=== PATIENT | female | born 1965 | race African-American/Black ===

== ENCOUNTER 2019-07-02 12:49 | Outpatient (CLI) | payer OTHER, SELFPAY ==
--- NOTE | ~2019-07-02 | MMUS_ITS ---
EXAMINATION: MM diagnostic farideh RT w carmen, US breast RT limited HISTORY: Medial right breast lump TECHNIQUE: Full field and spot ML, MLO and cc 3-D tomosynthesis images of the right breast were perfo rmed and synthetic 2-D images were generated. CAD analysis was submitted and interpreted. High resolu tion targeted 3:00 right breast ultrasound was performed. COMPARISON: 10/24/2018, 09/06/2017, 09/04/2016 bilateral digital screening mammogram examinations 01/06/2019 limited 9:00 right breast ultrasound BREAST PARENCHYMAL COMPOSITION: There are scattered areas of fibroglandular density. FINDINGS: MAMMOGRAPHIC FINDINGS: No mammographic suspicious mass, architectural distortion, malignant calcification, skin thickening o r retraction is evident. ULTRASOUND: Real-time and color flow imaging targeted to the area of clinical complaint of breast lump at 3:00 9 cm from the nipple reveals an irregular anti-parallel hypoechoic mass with corkscrew configuration an d prominent vascularity, measuring up to almost 7 mm depth and approximately 3.7 mm width. This is ocampo spicious. Ultrasound-guided biopsy is recommended. IMPRESSION: 1. Suspicious irregular 3.7 x 7 mm anti-parallel vascular mass at 3:00 9 cm from nipple 2. Ultrasound-guided biopsy of right breast 3:00 lesion 9 cm from nipple is recommended BI-RADS category 4, suspicious findings. Funeral Planning Counselor Rossy took the report and ultrasound-guided biopsy recommendation for the right breast 3:[address] Garner by telephone on 07/02/2019 at 1410 hours Reviewed, dictated and finalized at location A. IMPRESSION: 1. Suspicious irregular 3.7 x 7 mm anti-parallel vascular mass at 3:00 9 cm fro m nipple 2. Ultrasound-guided biopsy of right breast 3:00 lesion 9 cm from nipple is rec ommended BI-RADS category 4, suspicious findings. Funeral Planning CounselorAssistant Blair took the report and ultrasound-guided biopsy recomm endation for the right breast 3:[address] Garner by telephone on 0 at 1410 hours IMPRESSION: 1. Suspicious irregular 3.7 x 7 mm anti-parallel vascular mass at 3:00 9 cm fro m nipple 2. Ultrasound-guided biopsy of right breast 3:00 lesion 9 cm from nipple is rec ommended BI-RADS category 4, suspicious findings. Funeral Planning Counselor Rossy took the report and ultrasound-guided biopsy recomm endation for the right breast 3:[address] Garner by telephone on 0 at 1410 hours
== END 2019-07-02 12:50 | disposition home or self-care (01) ==
LOC: ANHIMG 12:51
PROVIDERS: PCP Internal Medicine; Visit Provider Internal Medicine
DX: N63.0 Unspecified lump in unspecified breast (principal); R92.8 Other abnormal and inconclusive findings on diagnostic imaging of breast
CPT/HCPCS: 76642; 77061; 77065; G0279

== ENCOUNTER 2019-07-06 10:13 | Outpatient (CLI) | payer OTHER, SELFPAY ==
--- NOTE | ~2019-07-06 | US_ITS ---
US breast RT limited 07/06/2019 11:15 Indication: Hypoechoic abnormality seen on recent ultrasound. Biopsy requested. Procedure: High-resolution Limited ultrasound of the right breast Comparison: 07/02/2019 Findings: Study was performed under direct supervision from Dr. Mayer. The area of interest appears to represent a focally dilated serpiginous duct. There is adjacent but no internal vascularity. No marin d masses are identified. Impression: 1: No benign focally dilated serpiginous duct at 3:00, 9 cm from the nipple. Following discussion wit h the patient it was decided to do a short-term six-month follow-up ultrasound to assess stability ra ther than biopsy. BI-RADS CATEGORY 3-PROBABLY BENIGN FINDING RECOMMENDATION: Six-month follow-up targeted right breast ultrasound and diagnostic right mammogram r ecommended. Reviewed, dictated and finalized at location A. Impression: 1: No benign focally dilated serpiginous duct at 3:00, 9 cm from the nipple. Fo llowing discussion with the patient it was decided to do a short-term six-month follow-up ultrasound to assess stability rather than biopsy. BI-RADS CATEGORY 3-PROBABLY BENIGN FINDING RECOMMENDATION: Six-month follow-up targeted right breast ultrasound and diagno stic right mammogram recommended.
== END 2019-07-06 10:14 | disposition home or self-care (01) ==
PROVIDERS: PCP Internal Medicine; Visit Provider Internal Medicine
DX: N64.89 Other specified disorders of breast (principal)
CPT/HCPCS: 76642

== ENCOUNTER 2019-08-03 15:54 | Outpatient (CLI) | payer OTHER, SELFPAY ==
--- NOTE | ~2019-08-03 | XR_ITS ---
XR wrist RT min 3V DATE: 08/03/2019 16:18 INDICATION: Lateral wrist pain. No known injury. TECHNIQUE: 4 views COMPARISON: None FINDINGS: No fracture or dislocation, periosteal reaction or bone destruction, erosive change or griffin drocalcinosis. Joint spaces appear relatively preserved. IMPRESSION: No significant abnormality Reviewed, dictated and finalized at location A. IMPRESSION: No significant abnormality
== END 2019-08-03 15:55 | disposition home or self-care (01) ==
LOC: ANHIMG 15:57
PROVIDERS: PCP Internal Medicine; Visit Provider Internal Medicine
DX: M25.539 Pain in unspecified wrist (principal)
CPT/HCPCS: 73110

== ENCOUNTER 2019-08-25 06:35 | Outpatient (CLI) | payer OTHER, SELFPAY ==
--- NOTE | ~2019-08-25 | MR_ITS ---
EXAMINATION: MR wrist RT wo con DATE: 08/25/2019 07:50 INDICATION: Right wrist pain TECHNIQUE: Magnetic resonance imaging (MRI) of the right wrist was performed without intravenous cont rast. Sequences performed include axial PD-weighted FSE and PD-weighted FS FSE, coronal PD-weighted F S FSE and T1-weighted SE, and sagittal PD-weighted FS FSE and PD-weighted FSE. COMPARISON: None FINDINGS: Intrinsic ligaments: The scapholunate and lunotriquetral ligaments are normal. Triangular fibrocartilage complex (TFCC): The triangular fibrocartilage including its foveal and styloid attachments as well as the dorsal and volar radioulnar ligaments are normal. The ulnar collateral ligament, ulnotriquetral ligament and men iscal homologue are normal. The extensor carpi ulnaris tendon sheath is normal. Extensor wrist: Small amount of fluid in the tendon sheath of the first dorsal compartment with surrounding edema con sistent with moderate tenosynovitis. There is fusiform thickening of the extensor pollicis brevis and more prominently of the abductor pollicis longus tendons consistent with mild tendinopathy without d iscrete tear. Flexor wrist: The flexor tendons of the wrist are normal. No abnormality in the carpal tunnel with normal median n erve. Guyon's canal: Guyon's canal including the ulnar nerve and artery are normal. Bones/other: Bone alignment is normal. No fractures or pathologic marrow replacing process. Mild polyarticular ost eoarthritis in the carpus with mild nonuniform joint space narrowing and scattered mild subarticular edema and subtle articular cystic change at several of the carpal bones as well as at the base of the first, second and fourth metacarpals. IMPRESSION: 1. De Quervain's tenosynovitis the first dorsal compartment with mild tendinopathy without discrete t ear of the extensor pollicis brevis brevis and abductor pollicis longus tendons. 2. 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 Reviewed, dictated and finalized at location A. IMPRESSION: 1. De Quervain's tenosynovitis the first dorsal compartment with mild tendinopa thy without discrete tear of the extensor pollicis brevis brevis and abductor p ollicis longus tendons. 2. 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
== END 2019-08-25 06:36 | disposition home or self-care (01) ==
PROVIDERS: PCP Internal Medicine; Visit Provider Internal Medicine
DX: M25.531 Pain in right wrist (principal); M65.4 Radial styloid tenosynovitis [de Quervain]; M19.031 Primary osteoarthritis, right wrist
CPT/HCPCS: 73221

== ENCOUNTER 2020-05-06 09:40 | Outpatient (CLI) | payer OTHER, SELFPAY ==
[2020-05-06 10:45] LABS: Alanine Aminotransferase 15 U/L (4-35); Albumin Level 4.4 g/dL (3.5-5.1); Alkaline Phosphatase 78 U/L (38-126); Anion Gap 6 mmol/L (8-16); Aspartate Amino Transferase 25 U/L (14-36); Bilirubin,Total 0.3 mg/dL (0.2-1.3); Blood Urea Nitrogen 13 mg/dL (7-17); Carbon Dioxide 32 mmol/L (22-30); Chloride 102 mmol/L (98-107); Cholesterol 178 mg/dL (0-200); Estimated Glomerular Filt Rate > 60; Glucose 90 mg/dL (65-105); HDL Direct 58 mg/dL; Potassium 3.9 mmol/L (3.4-5.0); Sodium 140 mmol/L (137-145); Triglycerides 47 mg/dL (<150)
[2020-05-06 10:46] LABS: Hemoglobin A1C 5.8 % (<5.7)
[2020-05-06 10:57] LABS: LDL Cholesterol Direct 93 mg/dL
== END 2020-05-06 09:41 | disposition home or self-care (01) ==
PROVIDERS: PCP Internal Medicine; Visit Provider Internal Medicine
DX: R73.03 Prediabetes (principal); E78.5 Hyperlipidemia, unspecified; Z79.899 Other long term (current) drug therapy
CPT/HCPCS: 36415; 80053; 80061; 83036

== ENCOUNTER 2020-05-13 08:47 | Emergency (ER) | payer OTHER, SELFPAY ==
[2020-05-13 08:51] VITALS: BP 159/88; PULSE 91; RESP 16; TEMP 37.2; O2SAT 100
--- NOTE | 2020-05-13 08:55 | ED.HA ---
HPI - Headache General Chief Complaint: Headache Stated Complaint: L FACIAL PARALYSIS Source: patient Mode of arrival: ambulatory Limitations: no limitations History of Present Illness HPI Narrative: Patient is a 54-year-old female who presents complaining of left facial tingling and heaviness . She reports face feels the same as when she had TIA in 2015. Patient reports initially having headache on with facial tingling for the past 2 days. She reports history of TIA due to blood clot. She denies headache at this time. She denies chest pain or shortness of breath. 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 MD elicited complaint: other (Facial tingling) Related Data Home Medications Medication Instructions Recorded Confirmed multivitamin 1 tablet PO DAILY 07/07/19 05/13/20 aspirin [Adult Low Dose Aspirin] 81 mg PO DAILY 05/13/20 05/13/20 Allergies Allergy/AdvReac Type Severity Reaction Status Date / Time codeine Allergy Unknown lock jaw Verified 05/13/20 08:52 Review of Systems Review of Systems: Narrative: CONSTITUTIONAL: Denies fever, chills, or sweats. EYES: Denies visual changes, redness, or discharge. ENT: Denies rhinorrhea, congestion, sore throat, or otalgia. CARDIOVASCULAR: Denies chest pain, palpitations, or edema. RESPIRATORY: Denies cough or dyspnea. GASTROINTESTINAL: Denies abdominal pain, nausea, vomiting, or diarrhea. GENITOURINARY: Denies dysuria or hematuria. SKIN: Denies rash or itching. MUSCULOSKELETAL: Denies back pain, joint pain, or myalgia. NEUROLOGIC: Reports headache which has resolved, numbness and tingling to right face. Denies dizziness or weakness. PSYCHIATRIC: Denies anxiety or depression. 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 Please see nursing chart for further information. There is no relevant family history pertinent to the presenting complaint. Exam Narrative: Exam Narrative: GENERAL: Well-appearing, well-nourished, and in no acute distress. HEAD: Normocephalic, atraumatic. EYES: EOMI. No redness or drainage. Conjunctiva are normal. ENT: Mucous membranes pink and moist. Throat normal. Uvula midline. NECK: AROM. Supple. No lymphadenopathy. CHEST: No respiratory distress. HEART: Regular rate and rhythm. EXTREMITIES: Normal range of motion. No edema. SKIN: Warm, dry, no rash. 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 Alert and oriented x3. Gait steady. PSYCH: Normal affect. No signs of depression or anxiety. Course Vital Signs Vital signs: Vital Signs Temperature 37.2 C 05/13/20 08:51 Pulse Rate 91 05/13/20 08:51 Respiratory Rate 16 05/13/20 08:51 Blood Pressure 159/88 H 05/13/20 08:51 Pulse Oximetry 100 05/13/20 08:51 Temperature 37.2 C 05/13/20 08:51 Pulse Rate 91 05/13/20 08:51 Respiratory Rate 16 05/13/20 08:51 Blood Pressure 159/88 H 05/13/20 08:51 Pulse Oximetry 100 05/13/20 08:51 Reviewed-patient is informed that they may have pre-hypertension or hypertension based
== END 2020-05-13 09:08 | disposition short-term general hospital (02) ==
PROVIDERS: Emergency Provider Nurse Practitioner; PCP Internal Medicine
DX: R20.0 Anesthesia of skin (principal); J45.909 Unspecified asthma, uncomplicated; Z86.73 Personal history of transient ischemic attack (TIA), and cerebral infarction without residual deficits; Z86.718 Personal history of other venous thrombosis and embolism
CPT/HCPCS: 99213; G0463

== ENCOUNTER 2020-05-13 09:20 | Emergency (ER) | payer OTHER, SELFPAY ==
--- NOTE | ~2020-05-13 | CT_ITS ---
EXAMINATION: CT brain wo con DATE: 05/13/2020 10:10 INDICATION: Facial numbness. TECHNIQUE: Computed tomography (CT) of the head was performed without intravenous contrast. The mA wa s adjusted according to patient size. Iterative reconstruction technique was employed. The dose-lengt h product was 605.33 mGy-cm. COMPARISON: Head CT 03/23/2016 FINDINGS: There is no intracranial hemorrhage, acute infarction, or abnormal intracranial mass lesion . There are scattered areas of low attenuation in the cerebral white matter. The ventricles are selin l in size. The paranasal sinuses are clear. The mastoid air cells are normal. IMPRESSION: 1. Mild nonspecific cerebral white matter disease, which likely represents chronic small vessel ische abhijeet disease. Reviewed, dictated and finalized at location A. ESS ASSOCIATE IMPRESSION: 1. 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
[2020-05-13 09:28] VITALS: BP 140/75; PULSE 89; RESP 13; TEMP 36.7; O2SAT 100
[2020-05-13 10:26] LABS: Basophils Percent Auto 0.5 % (0.2-1.2); Eosinophils Absolute Auto 0.1 K/mm3 (0-0.3); Hematocrit 39.7 % (37.0-47.0); Hemoglobin 12.9 g/dL (12.0-15.0); Immature Granulocyte Absolute 0.02 K/mm3 (0.00-0.031); Immature Granulocyte Percent A 0.3 % (0-0.5); Lymphocytes Absolute Auto 1.21 K/mm3 (0.9-3.2); Lymphocytes Percent Auto 20.6 % (18.3-44.2); Mean Corpuscular HGB Conc 32.5 g/dl (32-36); Mean Corpuscular Hemoglobin 28.4 pg (26-34); Mean Corpuscular Volume 87.3 fl (80-100); Mean Platelet Volume 9.5 fl (7.4-10.4); Monocytes Absolute Auto 0.3 K/mm3 (0.1-0.6); Monocytes Percent Auto 5.6 % (2.6-8.5); Neutrophils Absolute Auto 4.2 K/mm3 (1.3-6.7); Platelet Count Result 289 k/mm3 (150-375); Red Blood Count 4.55 M/mm3 (4.2-5.4); Red Cell Distribution Width 14.6 % (11.5-14.5); White Blood Count 5.9 K/mm3 (4.5-10.0)
[2020-05-13 10:36] LABS: INR 0.9; Prothrombin Time 13.1 Seconds (11.1-14.7)
[2020-05-13 10:37] LABS: Anion Gap 4 mmol/L (8-16); Blood Urea Nitrogen 10 mg/dL (7-17); Calcium 9.1 mg/dL (8.4-10.2); Carbon Dioxide 32 mmol/L (22-30); Chloride 102 mmol/L (98-107); Estimated CRCL calculation 72 ml/min; Estimated Glomerular Filt Rate > 60; Glucose 101 mg/dL (65-105); Potassium 3.6 mmol/L (3.4-5.0); Sodium 138 mmol/L (137-145)
--- NOTE | 2020-05-13 10:47 | ED.GENADULT ---
HPI - General Adult General Chief complaint: Unspecified Stated complaint: Request [facility] from [facility] Time Seen by Provider: 05/13/20 09:42 Source: patient Mode of arrival: ambulatory Limitations: no limitations History of Present Illness HPI narrative: 54-year-old with a history of dyslipidemia, blood clot in the brain several years ago here with complaints of facial tightness on and off since her past 2 days she also states that the left side of her face is numb occasionally she denies any headache or weakness on any particular side of her body. Patient states that she is anxious about her uncle's health. She presently has no headache or numbness or weakness. Patient initially went to urgent care and was later referred here to the ER. Patient states that she was supposed to take aspirin but she has not taken for the last several weeks Onset (ago): day(s) (2) Location: face Radiation: non-radiation Quality: other (numbness) Exacerbating factors: none Associated symptoms: denies other symptoms Related Data Home Medications Medication Instructions Recorded Confirmed multivitamin 1 tablet PO DAILY 07/07/19 05/13/20 aspirin [Adult Low Dose Aspirin] 81 mg PO DAILY 05/13/20 05/13/20 Allergies Allergy/AdvReac Type Severity Reaction Status Date / Time codeine Allergy Unknown lock jaw Verified 05/13/20 08:52 Review of Systems Review of Systems: All systems reviewed & are unremarkable except as noted in HPI and below Constitutional: Constitutional: Reports no additional constitutional complaints Eyes: Eyes: Reports no additional eye complaints ENT: Reports system reviewed and no additional complaints, except as documented Cardiovascular: Cardiovascular: Reports no additional cardiovascular complaints Respiratory: Respiratory: Reports no additional respiratory complaints Gastrointestinal: Gastrointestinal: Reports no additional gastrointestinal complaints Musculoskeletal: Musculoskeletal: Reports no additional musculoskeletal complaints Neurologic: Reports system reviewed and no additional complaints, except as documented Psychiatric: Psychiatric: Reports no additional psychiatric complaints [facility] Past Medical History Medical History Back pain Bursitis of right hip History of asthma TIA due to embolism Surgical History Surgical History H/O: hysterectomy 1995 Family History Family History Mother Family history of multiple sclerosis Hypertension Father Carcinoma of colon, Onset Age: 54 Grandparent Stomach cancer Grandparent Carcinoma of colon Social History Social History Smoking status: Never smoker Alcohol intake: never Substance use: never 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 HEAD: Normocephalic, atraumatic. EYES: PERRLA and EOMI. ENT: Nares clear, no rhinorrhea or epistaxis. Mucous membranes moist. NECK: Supple. CHEST: Clear to auscultation. No respiratory distress. HEART: Regular rate and rhythm. No murmur heard. Normal peripheral pulses. ABDOMEN: Soft, nontender, nondistended, normal active bowel sounds. EXTREMITIES: Normal range of motion. No edema. SKIN: Warm, dry, no rash. NEURO: No focal deficits. Alert and oriented x3. PSYCH: Normal mood and affect. Course Course Emergency Course: Inform patient about her lab work and CT findings. I advised her to continue to take her home medication including aspirin. At this time there is no evidence of stroke. Advised her to follow-up with her primary doctor. Vital Signs Vital signs: Vital Signs Temperature 36.7 C 05/13/20 09:28 Pulse
== END 2020-05-13 11:09 | disposition home or self-care (01) ==
PROVIDERS: Emergency Provider Family Medicine; PCP Internal Medicine
DX: R20.0 Anesthesia of skin (principal); E78.5 Hyperlipidemia, unspecified; J45.909 Unspecified asthma, uncomplicated; Z86.73 Personal history of transient ischemic attack (TIA), and cerebral infarction without residual deficits; Z79.82 Long term (current) use of aspirin; R90.82 White matter disease, unspecified
CPT/HCPCS: 36415; 70450; 80048; 85025; 85610; 99284

== ENCOUNTER 2020-05-19 17:15 | Outpatient (CLI) | payer OTHER, SELFPAY | END 2020-05-19 17:16 | disposition home or self-care (01) | LOC: ANHCOVIDVC 17:15 | PROVIDERS: PCP Internal Medicine | DX: Z23 Encounter for immunization (principal) | CPT/HCPCS: 0001A; 91300 ==

== ENCOUNTER 2020-05-22 16:54 | Outpatient (CLI) | payer OTHER, SELFPAY ==
--- NOTE | ~2020-05-22 | XR_ITS ---
XR hand LT min 3V 05/22/2020 17:12 Indication: Left hand pain Procedure: 3 views left hand Comparison: No prior studies for comparison. Findings: No fracture, subluxation or dislocation. There is mild osteoarthritis of the first CMC and MCP joints. Mild degenerative changes of the second and third MCP joints. Benign cystic change proxim al pole of the scaphoid. No focal soft tissue abnormality. No foreign bodies. Impression: 1: Mild polyarticular osteoarthritis. Reviewed, dictated and finalized at location A. Impression: 1: Mild polyarticular osteoarthritis.
== END 2020-05-22 16:55 | disposition home or self-care (01) ==
LOC: ANHIMG 16:56
PROVIDERS: PCP Internal Medicine; Visit Provider Internal Medicine
DX: M79.642 Pain in left hand (principal); M19.042 Primary osteoarthritis, left hand
CPT/HCPCS: 73130

== ENCOUNTER 2020-06-16 17:06 | Outpatient (CLI) | payer OTHER, SELFPAY | END 2020-06-16 17:07 | disposition home or self-care (01) | LOC: ANHCOVIDVC 17:06 | PROVIDERS: PCP Internal Medicine | DX: Z23 Encounter for immunization (principal); Z20.822 Contact with and (suspected) exposure to COVID-19 | CPT/HCPCS: 0002A; 91300; C9803; U0003; U0005 ==

== ENCOUNTER 2020-07-01 08:45 | Outpatient (CLI) | payer OTHER, SELFPAY ==
--- NOTE | ~2020-07-01 | XR_ITS ---
XR hip RT min 2V DATE: 07/01/2020 09:15 INDICATION: Right hip and groin pain. No known injury. TECHNIQUE: AP, lateral, crosstable lateral views of right hip COMPARISON: 09/08/2013 right hip FINDINGS: No fracture, dislocation, avascular necrosis or bone destruction. IMPRESSION: No significant abnormality Reviewed, dictated and finalized at location A. IMPRESSION: No significant abnormality
== END 2020-07-01 08:46 | disposition home or self-care (01) ==
PROVIDERS: PCP Internal Medicine; Visit Provider Internal Medicine
DX: M25.551 Pain in right hip (principal)
CPT/HCPCS: 73502

== ENCOUNTER 2020-07-19 15:30 | Outpatient (CLI) | payer OTHER, SELFPAY ==
--- NOTE | ~2020-07-19 | US_ITS ---
EXAMINATION: US pelvic complete w TV DATE: 07/19/2020 15:56 INDICATION: Pelvic and perineal pain, hysterectomy TECHNIQUE: Multiple transabdominal and endovaginal sonographic images of the pelvis were obtained. COMPARISON: None. FINDINGS: The uterus is surgically absent. The right ovary measures 1.2 x 2.7 x 1.2 cm. The left ovar y measures 0.9 x 1.6 x 1.0 cm. There is normal vascular flow in the ovaries. There is no free fluid i n the pelvis. IMPRESSION: 1. No sonographic correlate for the patient's symptoms. Reviewed, dictated and finalized at location A.
== END 2020-07-19 15:31 | disposition home or self-care (01) ==
PROVIDERS: PCP Internal Medicine; Visit Provider Internal Medicine
DX: R10.2 Pelvic and perineal pain (principal)
CPT/HCPCS: 76830; 76856

== ENCOUNTER 2020-07-26 11:48 | Outpatient (CLI) | payer OTHER, SELFPAY ==
--- NOTE | ~2020-07-26 | US_ITS ---
EXAMINATION: US venous doppler LE RT DATE: 07/26/2020 12:11 INDICATION: Right lower limb pain. TECHNIQUE: Grayscale ultrasound images without and with compression and Doppler ultrasound images of the right lower extremity veins were obtained. COMPARISON: Ultrasound 09/08/2013 FINDINGS: The visualized portions of right common femoral vein, profunda (deep) femoral vein, femoral vein, pop liteal vein, peroneal veins, posterior tibial veins, and greater saphenous vein outflow are patent. IMPRESSION: 1. No deep venous thrombosis. Reviewed, dictated and finalized at location B.
== END 2020-07-26 11:49 | disposition home or self-care (01) ==
LOC: ANHIMG 11:49
PROVIDERS: PCP Internal Medicine; Visit Provider Internal Medicine
DX: M79.604 Pain in right leg (principal)
CPT/HCPCS: 93971

== ENCOUNTER 2020-12-08 15:58 | Outpatient (CLI) | payer OTHER, SELFPAY ==
--- NOTE | ~2020-12-08 | XR_ITS ---
XR knee RT 3V DATE: 12/08/2020 16:21 INDICATION: Anterior knee pain for one month TECHNIQUE: [place], AP and lateral views COMPARISON: None FINDINGS: There is mild superior pole patellar enthesopathy at quadriceps tendon insertion. No fracture, dislocation, joint effusion, periosteal reaction or bone destruction, radiopaque intra-a rticular loose body or chondrocalcinosis. IMPRESSION: Mild superior pole patellar enthesopathy Reviewed, dictated and finalized at location A.
== END 2020-12-08 15:59 | disposition home or self-care (01) ==
LOC: ANHIMG 15:59
PROVIDERS: PCP Internal Medicine; Visit Provider Internal Medicine
DX: M25.561 Pain in right knee (principal); M76.51 Patellar tendinitis, right knee
CPT/HCPCS: 73562

== ENCOUNTER 2021-03-09 14:51 | Outpatient (CLI) | payer OTHER, SELFPAY ==
--- NOTE | ~2021-03-09 | MR_ITS ---
EXAMINATION: MR brain/brain stem wo/w con DATE: 03/09/2021 15:54 INDICATION: Headache, unspecified. TECHNIQUE: Magnetic resonance imaging (MRI) of the brain and brainstem was performed without and with 15 mL MultiHance intravenous contrast. Sequences included sagittal and axial T1-weighted FSE, axial diffusion-weighted FS EPI, axial T2*-weighted GRE, axial T2-weighted FLAIR Propeller, and axial T2-we ighted Propeller. Postcontrast sequences included axial, sagittal, and coronal T1-weighted FSE. Appar ent diffusion coefficient (ADC) maps were created. COMPARISON: Brain MRI 01/10/2015 FINDINGS: There are scattered areas of nonspecific increased T2-weighted signal intensity in the cere bral white matter and mikel. There is no intracranial hemorrhage, acute infarction, or abnormal intrac ranial mass lesion. The ventricles are normal in size. There is mild mucosal thickening in the parana jarad sinuses. The orbits are normal. The mastoid air cells are normal. IMPRESSION: 1. Stable mild nonspecific cerebral white matter disease and pontine disease, which likely represents chronic small vessel ischemic disease. Reviewed, dictated and finalized at location A. RTISING COPYWRITER IMPRESSION: 1. Stable mild nonspecific cerebral white matter disease and pontine disease, w hich likely represents chronic small vessel ischemic disease.
[2021-03-09 15:24] LABS: Estimated Glomerular Filt Rate > 60
== END 2021-03-09 14:52 | disposition home or self-care (01) ==
PROVIDERS: PCP Internal Medicine; Visit Provider Internal Medicine
DX: R51.9 Headache, unspecified (principal); Z86.73 Personal history of transient ischemic attack (TIA), and cerebral infarction without residual deficits; R90.82 White matter disease, unspecified
CPT/HCPCS: 70553; A9577

== ENCOUNTER 2021-05-30 14:36 | Outpatient (CLI) | payer OTHER, SELFPAY ==
[2021-05-30 16:29] LABS: CRP 0.5 mg/dL (<1.0)
[2021-05-30 16:46] LABS: Erythrocyte Sedimentation Rate 18 mm/hr (0-20)
== END 2021-05-30 14:37 | disposition home or self-care (01) ==
LOC: ANHWCLAB 14:38
PROVIDERS: PCP Internal Medicine; Visit Provider Internal Medicine
DX: M79.643 Pain in unspecified hand (principal)
CPT/HCPCS: 36415; 85652; 86140

== ENCOUNTER 2021-09-06 09:34 | Emergency (ER) | payer OTHER, SELFPAY ==
--- NOTE | ~2021-09-06 | CT_ITS ---
EXAMINATION: CT brain wo con INDICATION: Headache COMPARISON: 05/13/2020 TECHNIQUE: Standard unenhanced head CT. The dose-length product (DLP) was 529.67 mGy-cm. The mA was a djusted according to patient size. Iterative reconstruction technique was employed. FINDINGS: There is no intracranial hemorrhage, acute infarction, or abnormal mass lesion. The ventric les are normal. There is no abnormal mass effect or midline shift. The diaz-white matter differentiat ion is normal. There is mild periventricular and subcortical hypodensity probably related to small ve ssel ischemic disease. The globes and orbits are normal. The paranasal sinuses are clear. IMPRESSION: 1. No acute intracranial abnormality. 2. Nonspecific cerebral white matter disease. Reviewed, dictated and finalized at location B.
[2021-09-06 09:39] VITALS: BP 158/91; PULSE 109; RESP 18; TEMP 36.4; O2SAT 100
--- NOTE | 2021-09-06 10:04 | ED.HEATRA ---
HPI - Head Injury General Chief complaint: Head Injury Stated complaint: HI Time Seen by Provider: 09/06/21 09:40 History of Present Illness HPI Narrative: 55-year-old female presents emergency room secondary hand injury. 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 She states she was dazed but had no loss of consciousness. This morning she felt like she was even more dizzy and having just a mild headache and subsequently came to emergency room. She took aspirin for this discomfort she had. She has no visual problems. No numbness or tingling arms or legs. She states several years ago she was diagnosed with TIA. Related Data Home Medications Medication Instructions Recorded Confirmed multivitamin (One-A-Day Essential 1 tablet PO DAILY 07/07/19 12/18/20 tablet) aspirin 81 mg tablet 81 mg PO DAILY PRN Pain 05/13/20 12/18/20 topiramate 25 mg tablet (Topamax) 25 mg PO PRN PRN Migraine Headache 11/10/20 12/18/20 Allergies Allergy/AdvReac Type Severity Reaction Status Date / Time codeine Allergy Severe lock jaw Verified 09/06/21 09:55 Review of Systems Review of Systems: CONSTITUTIONAL: Denies fever, chills, or sweats. EYES: Denies visual changes, redness, or discharge. ENT: Denies rhinorrhea, congestion, sore throat, or otalgia. CARDIOVASCULAR: Denies chest pain, palpitations, or edema. RESPIRATORY: Denies cough or dyspnea. GASTROINTESTINAL: Denies abdominal pain, nausea, vomiting, or diarrhea. GENITOURINARY: Denies dysuria or hematuria. SKIN: Denies rash or itching. MUSCULOSKELETAL: Denies back pain, joint pain, or myalgia. NEUROLOGIC: Has a mild headache specifically to the top of her head where she hit it yesterday. Denies any visual disturbance. Denies any numbness weakness arms or legs. PSYCHIATRIC: Denies anxiety or depression. 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 Head normocephalic with mild amount of swelling to the top of the head with some mild tenderness to palpation. No bony abnormalities. No ecchymosis. EYES: PERRLA/EOMI, conjunctivae very clear. NOSE: Normal with no drainage EARS:TMS clear Sarthak Garza, with good light reflex. THROAT: Pharynx clear, no exudate. NECK: Supple. No adenopathy, no masses. RESPIRATORY: Airway patent, respirations nonlabored. Clear to auscultation bilaterally, no rales, rhonchi, wheezing. CARDIOVASCULAR: Regular rate and rhythm without murmurs, rubs, or gallops. ABDOMINAL: Soft, nontender, nondistended, no hepatosplenomegaly Musculoskeletal: Moves all extremities. Strength/ROM intact, No edema, No calf tenderness. NEURO: Alert. Cranial nerves II through XII intact. Normal gait. Good coordination. Nonfocal examination. SKIN:: Warm, dry. Normal Color PSYCHIATRIC: Normal affect/mood, normal interaction Course Vital Signs Vital signs: Vital Signs Temperature 97.6 F 09/06/21 09:39 Pulse Rate 109 H 09/06/21 09:39 Respiratory Rate 18 09/06/21 09:39 Blood Pressure 158/91 H 09/06/21 09:39 Pulse Oximetry 100 07
== END 2021-09-06 10:54 | disposition home or self-care (01) ==
PROVIDERS: Emergency Provider Emergency Medicine; PCP Internal Medicine
DX: S06.0X0A Concussion without loss of consciousness, initial encounter (principal); W22.8XXA Striking against or struck by other objects, initial encounter; Y92.59 Other trade areas as the place of occurrence of the external cause; Y99.0 Civilian activity done for income or pay
CPT/HCPCS: 70450; 99284

== ENCOUNTER 2022-12-21 11:44 | Outpatient (CLI) | payer OTHER, SELFPAY ==
--- NOTE | ~2022-12-21 | XR_ITS ---
XR hand BI arthritis min 3V 12/21/2022 11:39 Indication: Radiculopathy. Polyarthralgias. Procedure: 4 views each hand Comparison: 05/22/2020 Findings: There is mild polyarticular osteoarthritis. No fracture, subluxation or dislocation. No sof t tissue abnormality. No foreign bodies. Impression: 1: Mild polyarticular osteoarthritis. Reviewed, dictated and finalized at location A. Impression: 1: Mild polyarticular osteoarthritis.
--- NOTE | ~2022-12-21 | XR_ITS ---
XR foot RT standing 2V, XR foot LT standing 2V 12/21/2022 11:39 Indication: Bilateral foot pain. Radiculopathy. Procedure: 2 views each foot Comparison: No prior studies for comparison. Findings: There is mild osteoarthritis of the first metatarsal-phalangeal joints. There is mild soft tissue swelling adjacent to the fifth metatarsal phalangeal joints. Lisfranc joints are intact. No ac mane fracture or traumatic malalignment. 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 Reviewed, dictated and finalized at location A. 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
[2022-12-21 12:43] LABS: Rheumatoid Factor < 12.0 IU/ML (<12)
[2022-12-21 12:44] LABS: CRP 0.6 mg/dL (<1.0)
[2022-12-21 12:57] LABS: Vitamin D 25 Hydroxy 50.1 ng/mL
[2022-12-24 09:39] LABS: SM Antibody <1.0; SM/RNP Antibody <1.0
[2022-12-24 18:42] LABS: SS-A <1.0; SS-B <1.0
[2022-12-25 12:18] LABS: Aldolase 2.4 U/L (<=8.1)
[2022-12-27 05:05] LABS: Anti Nuclear Antibody Titer 1:40 (Negative)
== END 2022-12-21 11:45 | disposition home or self-care (01) ==
PROVIDERS: PCP Internal Medicine; Visit Provider Internal Medicine
DX: M19.042 Primary osteoarthritis, left hand (principal); M19.041 Primary osteoarthritis, right hand; M19.072 Primary osteoarthritis, left ankle and foot; M19.071 Primary osteoarthritis, right ankle and foot
CPT/HCPCS: 36415; 73130; 73620; 82085; 82306; 86038; 86039; 86140; 86225; 86235; 86430